=== PATIENT | female | born 1990 | race Caucasian/White ===

== ENCOUNTER → 2019-12-31 | Outpatient (CLI) | payer OTHER ==
--- NOTE | 2019-12-31 12:11 | RAD ---
PA and lateral views of the chest. Comparison: None. Indication: Cough Findings: Normal lung volume. No focal airspace disease. Normal pulmonary vasculature. No pleural effusion. No pneumothorax. The cardiomediastinal silhouette is normal in appearance. The great vessels are normal. No acute osseous abnormality. Cervical fusion hardware. Mild multilevel degenerative changes of the visualized spine. Impression: No acute cardiopulmonary process. Electronically signed by: Michael Dunbar MD (12/31/2019 12:08 PM) [id number]
== END ==
LOC: RAD 10:38
PROVIDERS: ATTEND Otolaryngology
DX: A15.0 Tuberculosis of lung (principal)
CPT/HCPCS: 71046